=== PATIENT | female | born 1975 | race Caucasian/White ===

== ENCOUNTER → 2023-02-15 | Outpatient (CLI) | payer BC | LOC: M PLAIMG 15:33 | PROVIDERS: ATTEND Allergy & Immunology Allergy | DX: J45.31 Mild persistent asthma with (acute) exacerbation (principal) ==

== ENCOUNTER → 2024-07-03 | Outpatient (CLI) | payer BC | LOC: M CARPUL 16:10 | PROVIDERS: ATTEND Registered Nurse | DX: R94.31 Abnormal electrocardiogram [ECG] [EKG] (principal); R07.9 Chest pain, unspecified; R06.02 Shortness of breath ==

== ENCOUNTER → 2024-08-01 | Outpatient (CLI) | payer BC | LOC: M CARPUL 13:18 | PROVIDERS: ATTEND Registered Nurse | DX: Q23.1 Congenital insufficiency of aortic valve (principal); R06.02 Shortness of breath; I08.2 Rheumatic disorders of both aortic and tricuspid valves ==